=== PATIENT | female | born 2000 ===

== ENCOUNTER → 2020-02-08 | Outpatient (CLI) | payer BC | LOC: ZCOL.LAB 15:02 | DX: Z20.828 Contact with and (suspected) exposure to other viral communicable diseases (principal) ==

== ENCOUNTER 2023-11-15 20:14 | Emergency (ER) | payer SELFPAY ==
[~2023-11-15] VITALS: Ht 157.5 cm; Wt 68.2 kg
[2023-11-15 22:47] VITALS: BP 119/85; PULSE 75; TEMP 98.7
== END 2023-11-15 22:47 | disposition home or self-care (01) ==
LOC: COL.ER 20:14
DX: S09.90XA Unspecified injury of head, initial encounter (principal); W18.2XXA Fall in (into) shower or empty bathtub, initial encounter; W22.09XA Striking against other stationary object, initial encounter